=== PATIENT | male | born 1985 | race Caucasian/White ===

== ENCOUNTER 2020-07-04 07:37 | Day surgery (SDC) ==
[2020-07-04] MEDS ORDERED: 0.9 % Sodium Chloride 1,000 ML IVC SCH (08:00)
[2020-07-04] MEDS ORDERED: Ondansetron 4 MG/2 ML VIAL IVP ONE ×2 (08:01→10:32)
[2020-07-04] MEDS ORDERED: *HR* Midazolam HCl 2 MG/2 ML VIAL ONE (08:10)
[2020-07-04] MEDS ORDERED: *HR* FentaNYL (PF) 100 MCG/2 ML VIAL ONE (08:10)
[2020-07-04] MEDS ORDERED: Ringers Solution, Lactated 1,000 ML IVC SCH (08:15)
[2020-07-04] MEDS ORDERED: Heparin 1,000 UNITS/500 mL 1,500 ML ONE (08:41)
[2020-07-04] MEDS ORDERED: *HR* Heparin 10,000 UNIT/10 ML VIAL ONE ×2 (08:41→08:50)
[2020-07-04] MEDS ORDERED: ISOVUE-370 200 ML INFUS..BTL ONE (08:41)
[2020-07-04] MEDS ORDERED: 0.9 % Sodium Chloride 1,000 ML ONE (08:49)
[2020-07-04] MEDS ORDERED: *HR* Propofol 200 MG/20 ML VIAL IVP ONE (10:32)
[2020-07-04] MEDS ORDERED: Lidocaine -MPF 2% 5 ML VIAL SQ ONE (10:32)
[2020-07-04] MEDS ORDERED: *HR* Succinylcholine 200 MG/10 ML VIAL IVP ONE (10:32)
[2020-07-04] MEDS ORDERED: Lidocaine -MPF 4% 5 ML AMPUL TP ONE (10:32)
[2020-07-04] MEDS ORDERED: *HR* Phenylephrine 10 MG/ML VIAL IVC ONE (10:32)
[2020-07-04] MEDS ORDERED: Protamine Sulfate 50 MG/5 ML VIAL IVP ONE (10:49)
[2020-07-04] MEDS ORDERED: Naloxone 0.4 MG/ML INJ IVP PRN (11:43)
[2020-07-04] MEDS ORDERED: *HR* Promethazine 25 MG/ML VIAL IVP ONE ×2 (12:21→12:53)
[2020-07-04] MEDS ORDERED: *HR* Promethazine 25 MG/ML VIAL IVP PRN (21:41)
[2020-07-04] MEDS ORDERED: Morphine Sulfate 2 MG/ML SYRINGE IVP PRN (21:46)
[2020-07-05 07:12] VITALS: BP 107/58
[2020-07-05] MEDS ORDERED: Propranolol LA (24 HR) 60 MG CAP.SA.24H PO SCH (09:00)
[2020-07-05] MEDS ORDERED: Apixaban 5 MG TABLET PO SCH (09:00)
[2020-07-05] MEDS ORDERED: TERBINAFINE HCL 250 MG PO SCH (09:00)
[2020-07-05] MEDS ORDERED: Loratadine/Pseudophed (12 HR) 1 EACH TABLET PO SCH (09:00)
== END 2020-07-05 09:40 | disposition home or self-care (01) ==
LOC: INVDIALAB 07:37 → 2NNU 13:23 → INVDIALAB 07-05 09:40 → 2NNU 07-05 11:43 → INVDIALAB 07-05 11:45 → 2NNU 07-06 09:11
PROVIDERS: ATTEND Internal Medicine Clinical Cardiac Electrophysiology